=== PATIENT | female | born 1985 ===

== ENCOUNTER 2020-09-01 04:11 | Emergency (ER) | payer OTHER, SELFPAY ==
[2020-09-01] MEDS ORDERED: Acetaminophen 500 MG TAB ONE (04:34)
[2020-09-01] MEDS ORDERED: Cephalexin 250 MG CAP ONE (04:42)
[2020-09-01] MEDS ORDERED: Ibuprofen 800 MG TAB ONE (04:53)
== END 2020-09-01 04:56 | disposition home or self-care (01) ==
LOC: BURERS 04:11
DX: S80.811A Abrasion, right lower leg, initial encounter (principal); L08.9 Local infection of the skin and subcutaneous tissue, unspecified; F17.210 Nicotine dependence, cigarettes, uncomplicated; W18.30XA Fall on same level, unspecified, initial encounter
CPT/HCPCS: 99406